=== PATIENT | male | born 1945 | race Caucasian/White ===

== ENCOUNTER → 2019-02-05 | Outpatient (CLI) | payer OTHER ==
[~2019-02-05] MED LIST: AMLO10TA8 PO; ASPI-630 PO; BUPIVACAINE MPF 0.25% 10 ML VIAL. ONE; CARB15DR3 EACHEYE; CETI10TA22 PO; CRESTOR40 MG PO; HYDR-2155 PO; ICOS1CAP PO; INSU100I16 SQ; LIDOCAINE 1% PF 30 ML VIAL. ONE; MAGN250T9 PO; METF500T16 PO; METO50TA29 PO; MULT-658 PO; OMEP40CA5 PO; PSYL0.5215 PO; TICA90TA PO; TRIA1TAB5 PO; VALS160T3 PO; [UNRECOGNIZED DRUG - OTHER] SQ
[2019-02-05 09:30] VITALS: BP 125/72
== END ==
LOC: SURG 08:24
PROVIDERS: ATTEND Anesthesiology
DX: M47.816 Spondylosis without myelopathy or radiculopathy, lumbar region (principal); I10 Essential (primary) hypertension; I25.2 Old myocardial infarction; E11.9 Type 2 diabetes mellitus without complications; Z98.890 Other specified postprocedural states; Z87.39 Personal history of other diseases of the musculoskeletal system and connective tissue; Z85.828 Personal history of other malignant neoplasm of skin; Z79.84 Long term (current) use of oral hypoglycemic drugs; Z88.8 Allergy status to other drugs, medicaments and biological substances
CPT/HCPCS: 64493; 64494; J2001; J3490